=== PATIENT | male | born 1960 | race Caucasian/White ===

== ENCOUNTER → 2021-06-14 | Day surgery (SDC) | payer BC ==
[~2021-06-14] MED LIST: Flumazenil 0.1 MG/ML 10 ML MDV ONE; Ketamine 200 MG/20 ML MDV ONE; Lactated Ringers 1,000 ML IV SCH; Midazolam 1 MG/ML 2 ML SDV ONE; Propofol 200 MG/20 ML SDV ONE; fentaNYL 100 MCG/2 ML SDV ONE
== END ==
LOC: CC.SDS 09:57
PROVIDERS: ATTEND Family Medicine
DX: D12.3 Benign neoplasm of transverse colon (principal); K62.1 Rectal polyp; Z98.890 Other specified postprocedural states
CPT/HCPCS: J2250; J2704; J3010; J7120

== ENCOUNTER 2024-07-25 18:13 | Observation (INO) | payer BC ==
[2024-07-25] MEDS ORDERED: Naloxone 2 MG/2 ML Syringe IVPUSH PRN (18:39)
[2024-07-25] MEDS: Ondansetron 4 MG/2 ML SDV IVPUSH PRN (18:46)
[2024-07-25] MEDS: HYDROmorphone 0.5 MG/0.5 ML Syringe IVPUSH ONE (18:46)
[2024-07-25] MEDS: Sodium Chloride 0.9% 1,000 ML IV ONE (18:51)
[2024-07-25] MEDS ORDERED: Ondansetron 4 MG/2 ML SDV IV PRN (21:48)
[2024-07-25] MEDS ORDERED: Ondansetron 4 MG Tab.DIS PO PRN (21:48)
[2024-07-25] MEDS ORDERED: Acetaminophen 325 MG Tab PO PRN (21:48)
[2024-07-26] MEDS: Acetaminophen/oxyCODONE 325-5 MG Tab PO PRN (00:35)
[2024-07-26] MEDS: HYDROmorphone 0.5 MG/0.5 ML Syringe IVPUSH PRN (01:13)
== END 2024-07-26 10:38 | disposition home or self-care (01) ==
LOC: CC.ED 18:13 → CC.MS 20:20 → UNDOADMOB 20:20 → CC.MS 21:33
PROVIDERS: ADMIT Physician Assistant Medical; ATTEND Physician Assistant Medical
DX: S67.190A Crushing injury of right index finger, initial encounter (principal); S67.192A Crushing injury of right middle finger, initial encounter; S67.194A Crushing injury of right ring finger, initial encounter; S67.196A Crushing injury of right little finger, initial encounter; S62.624A Displaced fracture of middle phalanx of right ring finger, initial encounter for closed fracture; Z79.899 Other long term (current) drug therapy; Z87.891 Personal history of nicotine dependence
CPT/HCPCS: 73130-RT; 96361; 96374; 96375; 99285-25; A9270-GY; J2405; J7030